=== PATIENT | female | born 1965 | race Hispanic/Latino ===

== ENCOUNTER 2020-08-17 12:03 | Emergency (ER) | payer OTHER ==
[2020-08-17] MEDS ORDERED: KETOROLAC TROMETHAMINE 30MG/ML ONE (13:27)
[2020-08-17] MEDS ORDERED: HYDROCODONE/ACETAMINOPHEN 5/325 MG TAB ONE (13:27)
== END 2020-08-17 14:18 | disposition home or self-care (01) ==
LOC: EDH 12:03
DX: M25.561 Pain in right knee (principal); I10 Essential (primary) hypertension; Z85.3 Personal history of malignant neoplasm of breast
CPT/HCPCS: 29505; 73562; 96372 ×2; 99284; J1100; J1885